=== PATIENT | male | born 1980 | race Caucasian/White ===

== ENCOUNTER 2022-12-20 19:46 | Outpatient (CLI) | payer OTHER, SELFPAY | END 2022-12-20 19:47 | disposition home or self-care (01) | LOC: AMB 12-24 04:03 | PROVIDERS: PCP Family Medicine; Visit Provider Family Medicine | DX: M54.50 Low back pain, unspecified (principal) | CPT/HCPCS: A0425; A0433 ==

== ENCOUNTER 2022-12-20 20:25 | Emergency (ER) | payer OTHER, SELFPAY ==
[2022-12-20 20:31] VITALS: BP 124/77; PULSE 66; RESP 16; TEMP 36.2; O2SAT 96
--- NOTE | 2022-12-20 20:56 | ED.GENADULT ---
HPI - General Adult General Time Seen by Provider: 20:57 Date Seen: 12/20/22 Chief complaint: Back Injury/Pain Stated complaint: back pain Time Seen by Provider: 12/20/22 20:56 Source: patient, family, EMS and RN notes reviewed Mode of arrival: EMS Limitations: no limitations History of Present Illness HPI narrative: Patient is a 42-year-old male brought in by EMS from home where he was having back pain. He has had low back pain since June of 2022 per his . It started just after sitting in a chair. There was no trauma. They deny any new trauma. His back pain progressed and he started having pain shooting down his right leg tonight. He denies any bowel or bladder dysfunction. He had a little numbness feeling in his right leg. EMS had come to the house as his could not get him up in he was having significant pain. I believe he had fentanyl and Ativan and is now improved in his pain. Baseline he will use meloxicam and ibuprofen. His states he has a muscle relaxant but does not like to use it, will only use it if he is not working. He has an appointment with Dr. Martinez tomorrow for his back. He has an MRI scheduled on the of this month. I did review with the patient and his that I do not have capacity to do MRI at this time of night. Thus, I cannot help them facilitate a quicker MRI. This is a work comp issue for him. No trauma no fevers or chills, no history of cancer. He has never been on any prednisone. Related Data Allergies Allergy/AdvReac Type Severity Reaction Status Date / Time No Known Drug Allergies Allergy Verified 12/20/22 20:36 Review of Systems Status of ROS: Reports: 6 or more systems reviewed and unremarkable except as noted in History and below PFSH PFSH Social History Non-prescribed substance use: denies use service: No Exam Const: Vital Signs, click to edit/add: Vital Signs - 24 hr 12/20/22 20:31 12/20/22 22:53 Temperature 97.1 F L Pulse Rate [Right Pulse Oximeter] 66 Respiratory Rate 16 Blood Pressure [Ri ght Upper Arm] 124/77 99/67 Pulse Oximetry 96 95 Oxygen Delivery Me thod Room Air Patient easily falls asleep, resting comfortably on the ER bed in stab 2, can roll over for me to examine him. His notes that he was unable to do this prior to EMS medications. She states this is the for she has seen him comfortable in quite a while. Documenting provider has reviewed patient's vital signs: yes Common normals: no apparent distress, average body habitus, oriented x3, no limitations and healthy appearing General appearance: cooperative, comfortable, well kempt and well developed HENMT: Common normals: normocephalic, head/scalp atraumatic and hearing grossly normal bilaterally Head and scalp: normocephalic and atraumatic Back & Pelvis: Other: No midline tenderness over his spine, inspection is normal. No pain over the SI joints. Cannot palpate any sciatic notch tenderness. He can straight leg raise with his left on his own. His right he is a bit more tenuous. Gets at a couple inches off the bed and has increased pain. Strength is 5/5 and symmetric throughout his lower extremities on testing. I cannot get DTRs on either side. He has good peripheral pulses in his feet, normal sensation. No lower extremity swelling noted. Skin looks to be normal, no rash. Neuro: Common normals: oriented x3 Psych: Appearance: well kempt Course Course Hospital Course: Reviewed with patient and his that it sounds like he is developing sciatica or a pinched nerve. He notes the pain went all the way down to his ankle. I agree he should have an MRI but there is nothing making this needed emergently tonight. Will initiate prednisone for him. I will give him an IV dose of 125 mg Solu-Medrol tonight. I will put in for prednisone and Flexeril in [facility]. We will make sure that he is able to be a bit more mobile at time of discharge. Vital Signs Vital signs: Initial Vital Signs Temperature 97.1 F L 12/20/22 20:31 Temperature Source Temporal Artery Scan 12/20/22 20:31 Pulse Rate 66 12/20/22 20:31 Pulse Rhythm 12/20/22 20:31 Respiratory Rate 16 12/20/22 20:31 Blood Pressure 124/77 12/20/22 20:31 Blood Pressure Mean 92 12/20/22 20:31 Blood Pressure Position Supine 12/20/22 20:31 Pulse Oximetry 96 12/20/22 20:31 Oxygen Delivery Method 12/20/22 20:31 Vital Signs Temperature 97.1 F L 12/20/22 20:31 Pulse Rate 66 12/20/22 20:31 Respiratory Rate 16 12/20/22 20:31 Blood Pressure 124/77 12/20/22 20:31 Pulse Oximetry 96 12/20/22 20:31 Oxygen Delivery Method 12/20/22 20:31 Temperature 97.1 F L 12/20/22 20:31 Pulse Rate 66 12/20/22 20:31 Respiratory Rate 16 12/20/22 20:31 Blood Pressure 99/67 12/20/22 22:53 Pulse Oximetry 95 12/20/22 22:53 Oxygen Delivery Method 12/20/22 20:31 Critical Care Time Critical Care Time Critical Care Time: No Discharge Plan Discharge Clinical Impression: Sciatica Patient Disposition: Home, Self-Care Condition: Stable Instructions: Sciatica (ED) Additional Instructions: Keep appointment that you have tomorrow with Dr. Martinez. Start oral prednisone in the morning, take with food. Can take the Flexeril up to 3 times a day when you are not working. You still can take it at bedtime every night, even on days when he work. You can supplement with Tylenol 1000 mg 3 times a day as needed for pain. Can use ibuprofen and her meloxicam. Note that prednisone and the nonsteroidal anti-inflammatories both can irritate the stomach, thus take with food. While on the prednisone, would maybe just take the meloxicam and Tylenol. Activity Level: Activity as Tolerated Follow Up/Referrals: Ezequiel Gonsales MD [Primary Care Provider] - Stand Alone Forms: [employer] Info Instructions
[2022-12-20] MEDS: METHYLPREDNISOLONE SOD SUCC 62.5 MG/ML (125) 125 MG IVP (21:18)
[2022-12-20 22:53] VITALS: BP 99/67; O2SAT 95
--- NOTE | 2022-12-20 22:53 | ED.NURSE ---
pt ambulated without issue.
== END 2022-12-20 23:05 | disposition home or self-care (01) ==
PROVIDERS: Emergency Provider Family Medicine; PCP Family Medicine
DX: M54.41 Lumbago with sciatica, right side (principal)
CPT/HCPCS: 96374; 99283; J2930

== ENCOUNTER 2022-12-30 07:31 | Outpatient (CLI) | payer OTHER, SELFPAY | END 2022-12-30 07:32 | disposition home or self-care (01) | PROVIDERS: PCP Family Medicine; Visit Provider Family Medicine | DX: M54.16 Radiculopathy, lumbar region (principal); M51.26 Other intervertebral disc displacement, lumbar region | CPT/HCPCS: 64483; J1100; Q9966 ==

== ENCOUNTER 2023-02-21 14:44 | Outpatient (CLI) | payer OTHER, SELFPAY | END 2023-02-21 14:45 | disposition home or self-care (01) | LOC: INJ CL 14:45 | PROVIDERS: PCP Family Medicine; Visit Provider Family Medicine | DX: M54.16 Radiculopathy, lumbar region (principal); M51.26 Other intervertebral disc displacement, lumbar region | CPT/HCPCS: 64483; J1100; Q9966 ==

== ENCOUNTER 2023-09-26 14:00 | Outpatient (RCR) | payer OTHER, SELFPAY | END 2023-12-26 10:53 | disposition home or self-care (01) | PROVIDERS: PCP Family Medicine; Visit Provider Physician Assistant | DX: M54.16 Radiculopathy, lumbar region (principal); Z48.89 Encounter for other specified surgical aftercare; Z51.89 Encounter for other specified aftercare | CPT/HCPCS: 97110; 97112; 97140; 97161; 97530; 97535 ==